=== PATIENT | female | born 1970 | race American Indian/Alaskan Native ===

== ENCOUNTER 2016-05-15 23:46 | Emergency (ER) | payer SELFPAY ==
[2016-05-15 23:59] VITALS: BP 128/92
[2016-05-16] MEDS ORDERED: MOTRIN PO ONE (02:35)
--- NOTE | 2016-05-16 02:40 | Emergency Department Report ---
ED Fall HPI - General Chief Complaint: Fall Stated Complaint: PAIN LF FOOT/KNEE Time Seen by Provider: 05/16/16 02:33 Source: patient Mode of arrival: Ambulatory - History of Present Illness Initial Comments: 45-year-old -[place] female comes in for complaint of left ankle pain status post fall. Patient reports that she slipped down 7 stairs while trying to grab her grandchild. Patient reports that his pain to bear weight. Patient reports she has no past medical history currently takes no medication did not hit her head did not lose consciousness. She has not had any recent travels has no known drug allergies. MD Complaint: fall -: Last night Fall From: down stairs (#) (7) Fall Witnessed: no Place Fall Occurred: home Loss of Consciousness: none Prolonged Down Time?: no Symptoms Prior to Fall: none Location: other (left ankle) Location - Extremities: Left: Ankle Severity scale (0 -10): 7 Quality: aching Context: tripped/slipped Associated Symptoms: denies - Related Data Previous Rx's Medication Instructions Recorded Last Taken Type Ibuprofen [Motrin 800 MG tab] 800 mg PO Q8HR PRN #60 tablet 05/16/16 Unknown Rx Allergies Allergy/AdvReac Type Severity Reaction Status Date / Time No Known Allergies Allergy Verified 05/15/16 23:54 ED Review of Systems ROS: Stated complaint: PAIN LF FOOT/KNEE Other details as noted in HPI Comment: All other systems reviewed and negative ED Past Medical Hx - Past Medical History Previous Medical History?: No - Surgical History Past Surgical History?: No - Social History Smoking Status: Never Smoker Substance Use Type: None - Medications Home Medications: Home Medications Medication Instructions Recorded Confirmed Last Taken Type Ibuprofen [Motrin 800 MG tab] 800 mg PO Q8HR PRN #60 tablet 05/16/16 Unknown Rx ED Physical Exam - General Limitations: No Limitations General appearance: alert, in no apparent distress - Head Head exam: Present: atraumatic, normocephalic - Eye Eye exam: Present: normal appearance, PERRL, EOMI - Expanded Lower Extremity Exam Left Ankle exam: Present: full ROM, tenderness, swelling Foot/Toe exam: Present: normal inspection, swelling Neuro vascular tendon exam: Present: no vascular compromise ED Course Vital Signs 05/15/16 23:54 Temperature 98.2 F Pulse Rate 79 Respiratory 20 Rate Blood Pressure 128/92 O2 Sat by Pulse 99 Oximetry ED Medical Decision Making - Radiology Data Radiology results: report reviewed, image reviewed Knee x-ray normal examination Foot x-ray there is no focal acute bony active maladies of the foot Ankle no fracture or dislocation is seen there is soft tissue swelling there is a small calcaneal spur - Medical Decision Making Patient's been evaluated by this provider in fast track. Awaiting for x-ray of left ankle. We'll offer patient ibuprofen 800 mg by mouth now. Patient verbalized understanding Critical care attestation.: If time is entered above; I have spent that time in minutes in the direct care of this critically ill patient, excluding procedure time. ED Disposition Clinical Impression: Fall (on) (from) other stairs and steps, initial encounter Sprain of left ankle Qualifiers: Encounter type: sequela Involved ligament of ankle: other ligament Qualified Code(s): S93.492S - Sprain of other ligament of left ankle, sequela Disposition: DISCHARGED TO HOME OR SELFCARE Is pt being admited?: No Does the pt Need Aspirin: No Condition: Stable Instructions: Fall Prevention (ED), Ankle Stirrup Splint (ED), Ankle Sprain (ED ), RICE Therapy (ED) Additional Instructions: Please follow-up with your primary care provider. Take Motrin for the pain followed the rice therapy that I am discharging you with. Prescriptions: Ibuprofen [Motrin 800 MG tab] 800 mg PO Q8HR PRN #60 tablet PRN Reason: Pain Referrals: PRIMARY CARE, [Primary Care Provider] - 3-5 Days [facility] [Outside] - 3-5 Days Forms: Work/School Release Form(ED)
--- NOTE | 2016-05-16 03:18 | XRay Report ---
FINAL REPORT PROCEDURE: XR ANKLE 3 LT TECHNIQUE: Left ankle radiographs, AP, lateral, and oblique views. CPT 76650 HISTORY: ankle PAIN COMPARISON: No prior studies are available for comparison. FINDINGS: Fracture (s) and/or Dislocation(s): None . Alignment: Normal . Joint space(s): Normal . Soft tissues: There is left lateral soft tissue swelling.. Bone mineralization: Normal . Foreign bodies: None . Calcaneal spurring: There are small calcaneal spurs.. IMPRESSION: No fracture or dislocation is seen. There is soft tissue swelling. There are small calcaneal spurs..
--- NOTE | 2016-05-16 03:25 | XRay Report ---
FINAL REPORT PROCEDURE: XR FOOT 3 LT TECHNIQUE: The left foot radiographs, AP, lateral, and oblique views. CPT 86591 HISTORY: foot PAIN COMPARISON: No prior studies are available for comparison. FINDINGS: Fracture (s) and/or Dislocation(s): None . Alignment: Normal . Joint space(s): Normal . Soft tissues: Normal . Bone mineralization: Normal . Foreign bodies: None . Calcaneal spurring: There are small calcaneal spurs.. IMPRESSION: There is no focal acute bony abnormality of the foot.
--- NOTE | 2016-05-16 03:25 | XRay Report ---
FINAL REPORT PROCEDURE: XR KNEE 3V LT TECHNIQUE: Left knee radiographs, AP, lateral and sunrise views. CPT 34000 HISTORY: knee PAIN COMPARISON: No prior studies are available for comparison. FINDINGS: Fracture (s) and/or Dislocation(s): None . Alignment: Normal . Joint space(s): Normal . Soft tissues: Normal . Bone mineralization: Normal . Foreign bodies: None . IMPRESSION: Normal Examination.
== END 2016-05-16 04:31 | disposition home or self-care (01) ==
LOC: ED 23:46
DX: S93.492A Sprain of other ligament of left ankle, initial encounter (principal); W10.8XXA Fall (on) (from) other stairs and steps, initial encounter; Y93.89 Activity, other specified; Y92.89 Other specified places as the place of occurrence of the external cause; Y99.8 Other external cause status